=== PATIENT | female | born 1965 | race Caucasian/White ===

== ENCOUNTER 2021-11-29 08:20 | Outpatient (CLI) | payer OTHER ==
[~2021-11-29] VITALS: Ht 162.6 cm; Wt 62.6 kg
== END 2021-11-29 12:00 | disposition home or self-care (01) ==
LOC: SLB 08:20 → EDSTATUS 12:15
PROVIDERS: ATTEND Dentist General Practice
DX: Z20.822 Contact with and (suspected) exposure to COVID-19 (principal)
CPT/HCPCS: 36415